=== PATIENT | female | born 1940 | race Caucasian/White ===

== ENCOUNTER 2018-05-08 16:12 | Emergency (ER) | payer MEDICARE, BC ==
--- NOTE | 2018-05-08 16:59 | ER Document Report ---
ED Medical Screen (RME) - General Chief Complaint: Chest Pain Stated Complaint: CHEST TIGHTNESS Time Seen by Provider: 05/08/18 16:49 Primary Care Provider: FER LOPEZ MD [Primary Care Provider] - Follow up as needed Notes: Patient is here because her blood pressure went up to high. She has a history of hypertension and is on labetalol and a REJI inhibitor, valsartan, and has been taking them as directed. She checks her own blood pressure at home and just a couple of days ago it was 132/104. Has not missed a dose of her medicines. She was in cardiac rehab today on a treadmill when she developed some chest tightness and her blood pressure was noted to have gone up into the 190-200 systolic region. Patient says she has chronic hip pain due to trochanttitus and it was hurting her more than usual on the treadmill. She says she had some chest tightness while on the treadmill and also a headache for the past couple of hours. Patient has had a defibrillator and pacemaker implanted. She had her tricuspid valve operated on 3 months ago at [place]. Patient is a retired nurse TRAVEL OUTSIDE OF THE [place] IN LAST 30 DAYS: No - Related Data Allergies/Adverse Reactions: lactose [Lactose] Allergy (Mild, Verified 05/08/18 16:15) Diarrhea codeine [Codeine] Allergy (Verified 05/08/18 16:15) Penicillins Allergy (Verified 05/08/18 16:15) ranitidine HCl [From Zantac] Allergy (Verified 05/08/18 16:15) Sulfa (Sulfonamide Antibiotics) Allergy (Verified 05/08/18 16:15) TB skin test Allergy (Uncoded 06/19/12 14:48) Past Medical History - Social History Chew tobacco use (# tins/day): No Frequency of alcohol use: Rare Drug Abuse: None - Past Medical History Cardiac Medical History: Reports: Hx Heart Attack - X 3, Hx Hypercholesterolemia, Hx Hypertension Renal/ Medical History: Denies: Hx Peritoneal Dialysis Past Surgical History: Reports: Hx Abdominal Surgery - colon resection, Hx Cardiac Catheterization - 18 CARDIAC CATHS, Hx Coronary Artery Bypass Graft - ZAYAS 04-23-12, Hx Coronary Stent - SEVERAL STENTS, Hx Internal DefibrillatorComment Only: Hx Cardiac Surgery - Tricuspid valve replacement - Immunizations Hx Diphtheria, Pertussis, Tetanus Vaccination: Yes Physical Exam - Vital signs Vitals: Temp Pulse Resp BP Pulse Ox 97.9 F 64 18 193/88 H 100 05/08/18 16:29 05/08/18 16:29 05/08/18 16:29 05/08/18 16:29 05/08/18 16:29 Course - Vital Signs Vital signs: Temp Pulse Resp BP Pulse Ox 97.9 F 64 18 193/88 H 100 05/08/18 16:29 05/08/18 16:29 05/08/18 16:29 05/08/18 16:29 05/08/18 16:29 Doctor's Discharge - Discharge Referrals: FER LOPEZ MD [Primary Care Provider] - Follow up as needed
--- NOTE | 2018-05-08 18:27 | EKG REPORT ---
SEVERITY:- ABNORMAL ECG - ATRIAL-PACED RHYTHM BORDERLINE LEFT AXIS DEVIATION : Confirmed by: John Araya MD 08-May-2018 18:26:53
--- NOTE | 2018-05-08 18:41 | ER Document Report ---
ED General - General Chief Complaint: Chest Pain Stated Complaint: CHEST TIGHTNESS Time Seen by Provider: 05/08/18 16:49 Primary Care Provider: FER LOPEZ MD [Primary Care Provider] - Follow up as needed Information source: Patient, [facility] Records Notes: 77-year-old female with coronary artery disease, hyperlipidemia, hypertension, recent tricuspid valve replacement presents with complaint of a brief episode of chest pain, shortness of breath and headache that occurred earlier this a fternoon while in cardiac rehab walking on the treadmill. Patient states pain lasted approximately 5 minutes. She describes it as a stabbing pain that did not radiate. Shortness of breath resolved within minutes and has not recurred. Patient states that her headache is generally located described as a dull ache. Patient does take labetalol for her blood pressure and denies missing a dose. Patient currently has no chest pain, shortness of breath. TRAVEL OUTSIDE OF THE [place] IN LAST 30 DAYS: No - HPI Onset: This afternoon Onset/Duration: Sudden, Gone Quality of pain: Stabbing Associated symptoms: Chest pain, Headache, Shortness of breath. denies: Pr oductive cough, Diarrhea, Fever, Nausea, Vomiting, Sweating Exacerbated by: Denies Relieved by: Denies Similar symptoms previously: Yes Recently seen / treated by doctor: Yes - Related Data Allergies/Adverse Reactions: lactose [Lactose] Allergy (Mild, Verified 05/08/18 16:15) Diarrhea codeine [Codeine] Allergy (Verified 05/08/18 16:15) Penicillins Allergy (Verified 05/08/18 16:15) ranitidine HCl [From Zantac] Allergy (Verified 05/08/18 16:15) Sulfa (Sulfonamide Antibiotics) Allergy (Verified 05/08/18 16:15) TB skin test Allergy (Uncoded 06/19/12 14:48) Past Medical History - General Information source: Patient, Relative, [facility] Records - Social History Smoking Status: Never Smoker Chew tobacco use (# tins/day): No Frequency of alcohol use: Rare Drug Abuse: None Lives with: Family Family History: Reviewed & Not Pertinent Patient has suicidal ideation: No Patient has homicidal ideation: No - Past Medical History Cardiac Medical History: Reports: Hx Heart Attack - X 3, Hx Hypercholesterolemia, Hx Hypertension Renal/ Medical History: Denies: Hx Peritoneal Dialysis Past Surgical History: Reports: Hx Abdominal Surgery - colon resection, Hx Cardiac Catheterization - 18 CARDIAC CATHS, Hx Coronary Artery Bypass Graft - ZAYAS 04-23-12, Hx Coronary Stent - SEVERAL STENTS, Hx Internal DefibrillatorComment Only: Hx Cardiac Surgery - Tricuspid valve replacement - Immunizations Hx Diphtheria, Pertussis, Tetanus Vaccination: Yes Hx Pneumococcal Vaccination: 01/06/12 Review of Systems - Review of Systems Notes: REVIEW OF SYSTEMS: CONSTITUTIONAL : Denies fever, chills, or sweats. + Recent illness described as cough, rhinorrhea. Denies weight loss, recent hospitalizations. EENT: Denies visual changes, eye pain. Denies sore throat, oral lesions, difficulty swallowing. CARDIOVASCULAR: Denies palpitations. Denies lower extremity edema. RESPIRATORY: + Cough, shortness of breath now resolved GASTROINTESTINAL: Denies abdominal pain or distention. Denies nausea, vomiting, or diarrhea. Denies blood in vomitus, stools, or per rectum. Denies black, tarry stools. Denies constipation. GENITOURINARY: Denies difficulty urinating, painful urination, frequency, blood in urine, or vaginal discharge. MUSCULOSKELETAL: Denies back or neck pain or stiffness. Denies joint pain or swelling. SKIN: Denies rash, lesions or sores. HEMATOLOGIC : Denies easy bruising or bleeding. LYMPHATIC: Denies swollen glands. NEUROLOGICAL: Denies confusion or altered mental status. Denies loss of consciousness. Denies dizziness or lightheadedness. + Headache. denies weakness or paralysis. Denies problems difficulty with ambulation, slurred speech. Denies sensory loss, numbness, or tingling. Denies seizures. PSYCHIATRIC: Denies anxiety or stress. Denies depression, suicidal ideation, or homicidal ideation. Denies visual or auditory hallucinations. Physical Exam - Vital signs Vitals: Temp Pulse Resp BP Pulse Ox 97.9 F 64 18 193/88 H 100 05/08/18 16:29 05/08/18 16:29 05/08/18 16:29 05/08/18 16:29 05/08/18 16:29 - Notes Notes: PHYSICAL EXAMINATION: GENERAL: Well-appearing, well-nourished and in no acute distress. HEAD: Atraumatic, normocephalic. EYES: Pupils equal round and reactive to light, extraocular movements intact, conjunctiva are normal. ENT: Nares patent, oropharynx clear without exudates. Moist mucous membranes. NECK: Normal range of motion, supple without lymphadenopathy LUNGS: Breath sounds clear to auscultation bilaterally and equal. No wheezes rales or rhonchi. HEART: Regular rate and rhythm without murmurs ABDOMEN: Soft, nontender, nondistended abdomen. No guarding, no rebound. No masses appreciated. Female : deferred Musculoskeletal: Normal range of motion, no pitting or edema. No cyanosis. NEUROLOGICAL: Cranial nerves grossly intact. Normal speech, normal gait. Normal sensory, motor exams PSYCH: Normal mood, normal affect. SKIN: Warm, Dry, normal turgor, no rashes or lesions noted. Course - Re-evaluation Re-evalutation: Laboratory 05/08/18 05/08/18 05/08/18 18:43 18:43 18:43 WBC 10.5 RBC 4.59 Hgb 13.0 Hct 39.3 MCV 86 MCH 28.4 MCHC 33.1 RDW 14.8 H Plt Count 287 Seg Neutrophils % 70.2 Lymphocytes % 19.8 Monocytes % 7.4 Eosinophils % 1.6 Basophils % 1.0 Absolute Neutrophils 7.4 Absolute Lymphocytes 2.1 Absolute Monocytes 0.8 Absolute Eosinophils 0.2 Absolute Basophils 0.1 Sodium 139.9 Potassium 4.7 Chloride 103 Carbon Dioxide 28 Anion Gap 9 BUN 19 Creatinine 0.76 Est GFR ( Amer) > 60 Est GFR (Non-Af Amer) > 60 Glucose 106 Calcium 10.1 Total Bilirubin 0.7 Direct Bilirubin 0.1 Neonat Total Bilirubin Not Reportable Neonat Direct Bilirubin Not Reportable Neonat Indirect Bili Not Reportable AST 27 ALT 32 Alkaline Phosphatase 133 H CK-MB (CK-2) 1.54 Troponin I < 0.012 Total Protein 7.2 Albumin 4.8 05/08/18 19:45 WBC RBC Hgb Hct MCV MCH MCHC RDW Plt Count Seg Neutrophils % Lymphocytes % Monocytes % Eosinophils % Basophils % Absolute Neutrophils Absolute Lymphocytes Absolute Monocytes Absolute Eosinophils Absolute Basophils Sodium Potassium Chloride Carbon Dioxide Anion Gap BUN Creatinine Est GFR ( Amer) Est GFR (Non-Af Amer) Glucose Calcium Total Bilirubin Direct Bilirubin Neonat Total Bilirubin Neonat Direct Bilirubin Neonat Indirect Bili AST ALT Alkaline Phosphatase CK-MB (CK-2) Troponin I < 0.012 Total Protein Albumin Chest X-Ray 05/08/18 20:21 IMPRESSION: No acute finding. copyright 2010 [employer]- All Rights Reserved Temp Pulse Resp BP Pulse Ox 98.7 F 64 20 161/86 H 95 05/08/18 21:28 05/08/18 16:29 05/08/18 21:28 05/08/18 21:28 05/08/18 21:28 77-year-old female presented with complaint of a brief episode of substernal chest pain associated with shortness of breath that occurred while at cardiac rehab earlier today. Patient's symptoms lasted approximately 5 minutes and has not reoccurred since that time. Vital signs reviewed. Patient is afebrile, markedly hypertensive but not tachycardic or hypoxic. patient does not appear toxic or dehydrated. She is in no acute distress. Patient has a normal neurologic and physical exam. EKG was obtained which showed an atrial paced rhythm. Patient did take aspirin prior to arrival. 05/08/18 21:17 Patient reevaluated and she reports that she has not had any recurrence of chest pain, shortness of breath or headache since this afternoon. Patient did receive labetalol 10 mg IV during her ED course. Cardiac enzymes including delta troponin are within normal limits. CBC, CMP within normal limits. Daughter is now at the bedside and states that her mother appears well and is hungry. Patient was evaluated and treated as appropriate for the patient's presenting symptoms and complaint, with consideration of any critical or life threatening conditions that may be associated with their obtained history and exam as noted above. All results were discussed with patient and the patient's daughter. Patient provided the opportunity to ask questions, and express concerns. Patient was educated on treatments based on their presumed diagnosis as noted above. At this time we will discharge the patient with return precautions and follow-up recommendations. Verbal discharge instructions given a the bedside. Medication warnings reviewed. Patient is in agreement with this plan and has verbalized un derstanding of return precautions. After careful consideration I feel that that patient can be safely discharged from the emergency department, they were advised to followup with a primary care physician in 2-3 days. Dictation on this chart was performed using voice recognition software and may result in unintended grammatical, spelling, syntax or errors. 05/09/18 08:56 05/09/18 10:00 05/09/18 10:03 The atrially paced 05/09/18 10:07 - Vital Signs Vital signs: Temp Pulse Resp BP Pulse Ox 98.7 F 64 20 161/86 H 95 05/08/18 21:28 05/08/18 16:29 05/08/18 21:28 05/08/18 21:28 05/08/18 21:28 - Laboratory Result Diagrams: 05/08/18 18:43 05/08/18 18:43 Laboratory results interpreted by me: 05/08/18 05/08/18 18:43 18:43 RDW 14.8 H Alkaline Phosphatase 133 H - Diagnostic Test Radiology reviewed: Image reviewed, Reports reviewed - EKG Interpretation by Me EKG shows normal: Sinus rhythm Rate: Normal Rhythm: NSR - Atrial paced rhythm When compared to previous EKG there are: No significant change Discharge - Discharge Clinical Impression: Shortness of breath Hypertension Qualifiers: Hypertension type: unspecified Qualified Code(s): I10 - Essential (primary) hypertension Chest pain Qualifiers: Chest pain type: unspecified Qualified Code(s): R07.9 - Chest pain, unspecified Headache Qualifiers: Headache type: unspecified Headache chronicity pattern: unspecified pattern Intractability: not intractable Qualified Code(s): R51 - Headache Condition: Good Disposition: HOME, SELF-CARE Instructions: Chest Pain of Unclear Cause ([facility]), Dyspnea, Nonspecific ([facility]), Headache ([facility]) Additional Instructions: You were seen today for chest pain. The exact cause of your pain is unclear. However, based on your cardiac enzyme testing, chest x-ray, and EKG it does not appear that it is from an immediately life-threatening cause at this time. Although your testing here is normal is critical that you follow-up with your primary care physician for continued evaluation of this chest pain and possible stress testing. I recommended you see your physician within the next 24-48 hours to be evaluated for consideration of a stress test. Please return to emergency department immediately if you have worsening of your chest pain, short ness of breath, vomiting, become unable to exert yourself due to pain or difficulty breathing, you pass out, or have any pain that radiates into your arms, jaw, or back. Please also return if you have any additional symptoms that are concerning to you. Forms: Elevated Blood Pressure Referrals: FER LOPEZ MD [Primary Care Provider] - Follow up as needed
[2018-05-08 18:56] LABS: ABSOLUTE BASOPHILS # (AUTO) 0.1 10^3/uL (0.0-0.2); ABSOLUTE EOSINOPHILS # (AUTO) 0.2 10^3/uL (0.0-0.6); ABSOLUTE LYMPHOCYTES (AUTO) 2.1 10^3/uL (0.5-4.7); ABSOLUTE MONOCYTES (AUTO) 0.8 10^3/uL (0.1-1.4); ABSOLUTE NEUT (AUTO) 7.4 10^3/uL (1.7-8.2); EOSINOPHILS % (AUTO) 1.6 % (0-6); HEMATOCRIT 39.3 % (36.0-47.0); LYMPHOCYTES % (AUTO) 19.8 % (13-45); MEAN CORPUSCULAR HEMOGLOBIN 28.4 pg (27.0-33.4); MEAN CORPUSCULAR HGB CONC 33.1 g/dL (32.0-36.0); MEAN CORPUSCULAR VOLUME 86 fl (80-97); MONOCYTES % (AUTO) 7.4 % (3-13); PLATELET COUNT 287 10^3/uL (150-450); RED BLOOD COUNT 4.59 10^6/uL (3.72-5.28); RED CELL DISTRIBUTION WIDTH 14.8 % (11.5-14.0); SEGMENTED NEUTROPHILS % (AUTO) 70.2 % (42-78); TOTAL CELLS COUNTED % (AUTO) 100 %; WHITE BLOOD COUNT 10.5 10^3/uL (4.0-10.5)
[2018-05-08 19:11] LABS: ALANINE AMINOTRANSFERASE 32 U/L (9-52); ALBUMIN 4.8 g/dL (3.5-5.0); ALKALINE PHOSPHATASE 133 U/L (38-126); ANION GAP 9 (5-19); ASPARTATE AMINO TRANSFERASE 27 U/L (14-36); BILIRUBIN,DIRECT 0.1 mg/dL (0.0-0.4); BILIRUBIN,TOTAL 0.7 mg/dL (0.2-1.3); BLOOD UREA NITROGEN 19 mg/dL (7-20); CALCIUM 10.1 mg/dL (8.4-10.2); CARBON DIOXIDE 28 mmol/L (22-30); CHLORIDE 103 mmol/L (98-107); GLUCOSE 106 mg/dL (75-110); POTASSIUM 4.7 mmol/L (3.6-5.0); SODIUM 139.9 mmol/L (137-145); TOTAL PROTEIN 7.2 g/dL (6.3-8.2)
[2018-05-08 19:24] LABS: CREATINE KINASE MB 1.54 ng/mL (<4.55)
[2018-05-08 19:25] LABS: TROPONIN I < 0.012 ng/mL
[2018-05-08] MEDS ORDERED: LABETALOL HCL INJ 20 MG/4 ML DISP.SYRIN IV ONE (20:26)
--- NOTE | 2018-05-08 20:53 | RADIOLOGY REPORT (SQ) ---
EXAM DESCRIPTION: XR CHEST 2 VIEWS COMPLETED DATE/TME: 05/08/2018 20:21 CLINICAL HISTORY: 77 years, Female, Chest pain COMPARISON: None. NUMBER OF VIEWS: TECHNIQUE: LIMITATIONS: None. FINDINGS: No evidence of pulmonary infiltrate or pleural effusion. There is mild scarring in the lingula. The heart is normal in size. There is a left-sided pacemaker. No evidence of heart failure. There is tortuosity of the thoracic aorta. IMPRESSION: No acute finding. copyright 2010 [employer]- All Rights Reserved
[2018-05-08 21:30] VITALS: BP 161/86
== END 2018-05-08 21:41 | disposition home or self-care (01) ==
LOC: ER 16:12
DX: R07.9 Chest pain, unspecified (principal); R06.02 Shortness of breath; R51 Headache; R05 Cough; I25.10 Atherosclerotic heart disease of native coronary artery without angina pectoris; E78.5 Hyperlipidemia, unspecified; I10 Essential (primary) hypertension
CPT/HCPCS: 93005; 99284; 96374; 36415; 82553; 85025; 80053; 84484; 71046; 93010; J3490